=== PATIENT | male | born 1965 | race Caucasian/White ===

== ENCOUNTER 2020-06-12 10:10 | Outpatient (REF) | payer OTHER, SELFPAY | END 2020-06-12 10:11 | disposition home or self-care (01) | LOC: HO.LAB 10:10 | PROVIDERS: Visit Provider Internal Medicine | DX: Z20.822 Contact with and (suspected) exposure to COVID-19 (principal) | CPT/HCPCS: 36415; C9803; U0003 ==

== ENCOUNTER 2020-06-21 17:35 | Emergency (ER) | payer OTHER, SELFPAY ==
[2020-06-21 17:41] VITALS: BP 114/75; PULSE 108; RESP 18; TEMP 36.9; O2SAT 96; BMI 33.3
--- NOTE | 2020-06-21 19:08 | XR_ITS ---
EXAMINATION: XR CHEST CLINICAL INFORMATION: Dyspnea COMPARISON: None TECHNIQUE: Frontal view of the chest was obtained. FINDINGS: No significant abnormality is noted involving the heart, lungs, mediastinum, bony thorax or soft tissues. XR/XR chest 1V IMPRESSION: Unremarkable examination.
--- NOTE | 2020-06-21 19:08 | ECG_ITS ---
Test Reason : SOB Blood Pressure : / mmHG Vent. Rate : 077 BPM Atrial Rate : 077 BPM P-R Int : 150 ms QRS Dur : 100 ms QT Int : 382 ms P-R-T Axes : 045 013 072 degrees QTc Int : 432 ms Normal sinus rhythm Normal ECG No previous ECGs available Referred By: Generic ED Physician Electronically Signed By:Elpidio Mancilla
[2020-06-21 19:53] LABS: MANUAL DIFF FLAG NO
[2020-06-21 19:58] LABS: Basophils Percent Auto 0.3 % (0-2); Eosinophils Absolute Auto 0.1 X10*3/uL (0.0-0.4); Eosinophils Percent Auto 1.6 % (0-4); Hematocrit 44.4 % (42-52); Hemoglobin 15.2 g/dl (14.0-18.0); Imm Gran Abs Auto 0.01 X10*3/uL (0.00-0.03); Imm Gran Pct Auto 0.1 % (0.0-0.4); Lymphocytes Absolute Auto 1.7 X10*3/uL (1.2-4.9); Lymphocytes Percent Auto 24.4 % (20-40); Mean Corpuscular HGB Conc 34.2 g/dl (31.0-36.0); Mean Corpuscular Hemoglobin 32.5 pg (27.0-33.0); Mean Corpuscular Volume 94.9 fL (80-98); Monocytes Absolute Auto 0.8 X10*3/uL (0.1-1.2); Monocytes Percent Auto 10.8 % (2-11); Neutrophils Absolute Auto 4.4 X10*3/uL (2.0-8.3); Neutrophils Percent Auto 62.8 % (45-73); Platelet Count 187 X10*3/uL (160-400); Red Blood Count 4.68 X10*6/uL (4.60-5.80); Red Cell Distribution Width 12.3 % (11.0-16.0)
[2020-06-21 20:17] LABS: Prothrombin Time 12.3 SEC (10.8-13.0)
[2020-06-21 20:19] LABS: Anion Gap 14 (12-20); Blood Urea Nitrogen 9 mg/dL (9-16); Calcium 8.6 mg/dL (8.4-10.2); Carbon Dioxide 29 mmol/L (22-29); Chloride 103 mmol/L (96-108); Creatinine Clr Calc Pharmacy 132.4; Estimated Glomerular Filt Rate > 60; Glucose Random 95 mg/dL (60-115); Potassium 4.9 mmol/L (3.3-5.1); Sodium 141 mmol/L (135-145)
[2020-06-21 20:20] LABS: Partial Thromboplastin Time 35.7 SEC (24.1-38.0)
[2020-06-21 20:26] LABS: B Type Natriuretic Peptide < 10 pg/mL (<100)
[2020-06-21 22:06] VITALS: BP 136/86; PULSE 82; RESP 16; TEMP 37.4; O2SAT 96
--- NOTE | 2020-06-21 22:38 | ED_ITS ---
HPI - URI/Sore Throat General Chief Complaint: Dyspnea Stated Complaint: Covid + Time Seen by Provider: 06/21/20 22:10 Source: patient Mode of arrival: ambulatory Limitations: no limitations History of Present Illness HPI Narrative: 55-year-old male known COVID positive presents with 12 days of upper respiratory symptoms, states that the symptoms are getting worse and now he is coughing up a thick sputum. He does not report palpitations, abdominal pain, abdominal distention, nausea, vomiting, or edema. MD elicited complaint: fever, cough and nasal congestion Pertinent past history: other (COVID-19 positive) Onset (ago): day(s) (12) Consistency: constant Description of mucous: watery and yellow Able to tolerate fluids by mouth: Yes Exacerbating factors: exertion and deep breaths Relieving factors: nothing Context: sick contacts Associated symptoms: fever, chills, myalgias, headache, rhinorrhea and cough Treatments prior to arrival: acetaminophen and ibuprofen Related Data Previous Rx's Medication Instructions Recorded azithromycin [Zithromax Z-Leroy] See Rx Instructions .ROUTE 06/21/20 .COMPLEX #6 tab benzonatate [Tessalon Perles] 100 mg PO TID PRN #30 cap 06/21/20 cephalexin [Keflex] 500 mg PO QID 7 Days #28 cap 06/21/20 dexamethasone 6 mg PO DAILY 10 Days #10 tab 06/21/20 Allergies Allergy/AdvReac Type Severity Reaction Status Date / Time Penicillins [PENICILLINS] Allergy Unknown UNKNOWN Unverified 02/08/20 16:57 sulfamethoxazole Allergy Unknown UNKNOWN Unverified 02/08/20 16:57 [From BACTRIM] trimethoprim [From BACTRIM] Allergy Unknown UNKNOWN Unverified 02/08/20 16:57 vancomycin [VANCOMYCIN] Allergy Unknown UNKNOWN Verified 06/21/20 17:41 ALMOST EVERYTHING Allergy Unknown ASK PT Uncoded 02/08/20 16:57 Review of Systems Review of Systems: Constitutional: positive Fever, positive Chills, positive fatigue, positive Malaise ENT/Mouth: positive sore throat, positive runny nose Eyes: No Discharge Cardiovascular: No Chest Pain, No SOB Respiratory: Positive Cough, positive Sputum, No Wheezing, No Smoke Exposure, No Dyspnea Gastrointestinal: No Nausea, No Vomiting, No Diarrhea Genitourinary: no irregular bleeding, No Dysuria, No Urinary Frequency, No Hematuria, No Urinary Incontinence, No Urgency, No Flank Pain, Musculoskeletal: positive Myalgia Skin: No rash Neuro: No Headache Yes all other systems are reviewed and are negative [facility] Past Medical History Attestation statement: The following information was validated with the patient. Source: old records reviewed Social History Social History Advance Directives: No Advance Directives Information Provided: No Physical Exam Vital Signs: Vital Signs: Last Vital Signs Temp 99.4 F 06/21/20 22:06 Pulse 82 06/21/20 22:06 Resp 16 06/21/20 22:06 BP 136/86 06/21/20 22:06 Pulse Ox 98 06/21/20 22:53 Body Mass Index 33.3 Appearance: Alert. Oriented X3. Mild distress. Eyes: Pupils equal, round and reactive to light. ENT: Pharynx normal. Neck: Normal inspection. Neck supple. CVS: Normal heart rate and rhythm. Pulses normal. Respiratory: No respiratory distress. Lung sounds wheezing Abdomen: Soft and nontender. Skin: Skin warm and dry. Normal skin color. Normal skin turgor. Extremities: No lower extremity edema. Neuro: No motor deficit. No sensory deficit. Course Course Course Narrative: 55-year-old male with known COVID positive presents with worsening symptoms. Chest x-ray does not show any acute findings, labs are unremarkable, ambulatory pulse ox at 97% on room air. At this time we will treat with antibiotics, steroids, and albuterol as an outpatient. Patient understands that he does not meet admission criteria even though he feels terrible, patient does understand this shortness of breath, chest pain, or any o ther concerning symptoms are to arise that he is always more than welcome return to the emergency department for further evaluation. Patient verbalized understanding of and agrees to plan of care to discharge home. MDM - URI/Sore Throat MDM Narrative Medical decision making narrative: Positive COVID-19 Differential Diagnosis Differential diagnosis: Likely upper respiratory infection and viral infection Medical Records Attestation: I reviewed the patient's medical records. Lab Data Attestation: I reviewed the patient's lab results. Result diagrams: 06/21/20 19:48 06/21/20 19:48 Labs: Lab Results 06/21/20 06/21/20 06/21/20 Range/Units 19:48 19:48 19:48 WBC 7.0 (4.8-10.8) X10*3/uL RBC 4.68 (4.60-5.80) X10*6/uL Hgb 15.2 (14.0-18.0) g/dl Hct 44.4 (42-52) % MCV 94.9 (80-98) fL MCH 32.5 (27.0-33.0) pg MCHC 34.2 (31.0-36.0) g/dl RDW 12.3 (11.0-16.0) % Plt Count 187 (160-400) X10*3/uL MPV 9.0 L (9.4-12.4) fL Immature Gran % (Auto) 0.1 (0.0-0.4) % Neut % (Auto) 62.8 (45-73) % Lymph % (Auto) 24.4 (20-40) % Sargent % (Auto) 10.8 (2-11) % Eos % (Auto) 1.6 (0-4) % Baso % (Auto) 0.3 (0-2) % Lymph # (Auto) 1.7 (1.2-4.9) X10*3/uL Sargent # (Auto) 0.8 (0.1-1.2) X10*3/uL Eos # (Auto) 0.1 (0.0-0.4) X10*3/uL Baso # (Auto) 0.0 (0.0-0.2) X10*3/uL Abs Immat Gran (auto) 0.01 (0.00-0.03) X10*3/uL Absolute Neuts (auto) 4.4 (2.0-8.3) X10*3/uL Absolute Nucleated RBC 0.000 (0.0-0.012) X10*3/uL Nucleated RBC % (auto) 0.0 (0.0-0.2) /100WBC PT 12.3 (10.8-13.0) SEC INR 1.0 (0.9-1.1) APTT 35.7 (24.1-38.0) SEC Sodium 141 (135-145) mmol/L Potassium 4.9 (3.3-5.1) mmol/L Chloride 103 (96-108) mmol/L Carbon Dioxide 29 (22-29) mmol/L Anion Gap 14 (12-20) BUN 9 (9-16) mg/dL Creatinine 0.84 (0.5-1.4) mg/dL Estim Creat Clear Calc 132.4 Estimated GFR > 60 Random Glucose 95 (60-115) mg/dL Calcium 8.6 (8.4-10.2) mg/dL Troponin I High Sens (<3.5-35.0) ng/L B-Natriuretic Peptide (<100) pg/mL 06/21/20 Range/Units 19:48 WBC (4.8-10.8) X10*3/uL RBC (4.60-5.80) X10*6/uL Hgb (14.0-18.0) g/dl Hct (42-52) % MCV (80-98) fL MCH (27.0-33.0) pg MCHC (31.0-36.0) g/dl RDW (11.0-16.0) % Plt Count (160-400) X10*3/uL MPV (9.4-12.4) fL Immature Gran % (Auto) (0.0-0.4) % Neut % (Auto) (45-73) % Lymph % (Auto) (20-40) % Sargent % (Auto) (2-11) % Eos % (Auto) (0-4) % Baso % (Auto) (0-2) % Lymph # (Auto) (1.2-4.9) X10*3/uL Sargent # (Auto) (0.1-1.2) X10*3/uL Eos # (Auto) (0.0-0.4) X10*3/uL Baso # (Auto) (0.0-0.2) X10*3/uL Abs Immat Gran (auto) (0.00-0.03) X10*3/uL Absolute Neuts (auto) (2.0-8.3) X10*3/uL Absolute Nucleated RBC (0.0-0.012) X10*3/uL Nucleated RBC % (auto) (0.0-0.2) /100WBC PT (10.8-13.0) SEC INR (0.9-1.1) APTT (24.1-38.0) SEC Sodium (135-145) mmol/L Potassium (3.3-5.1) mmol/L Chloride (96-108) mmol/L Carbon Dioxide (22-29) mmol/L Anion Gap (12-20) BUN (9-16) mg/dL Creatinine (0.5-1.4) mg/dL Estim Creat Clear Calc Estimated GFR Random Glucose (60-115) mg/dL Calcium (8.4-10.2) mg/dL Troponin I High Sens 4.0 (<3.5-35.0) ng/L B-Natriuretic Peptide < 10 (<100) pg/mL Imaging Data Chest x-ray: Attestation: I personally reviewed and interpreted this imaging study as follows: Radiologist's impression: EXAMINATION: XR CHEST CLINICAL INFORMATION: Dyspnea COMPARISON: None TECHNIQUE: Frontal view of the chest was obtained. FINDINGS: No significant abnormality is noted involving the heart, lungs, mediastinum, bony thorax or soft tissues. XR/XR chest 1V IMPRESSION: Unremarkable examination. ECG Data Attestation: I personally reviewed and interpreted this ECG as follows: ECG interpretation date: 06/21/20 ECG interpretation time: 20:52 Interpretation: Vent. rate 77 BPM LA interval 150 ms QRS duration 100 ms QT/QTc 382/432 ms P-R-T axes 45 13 72, Normal sinus rhythm Normal ECG No previous ECGs available Discharge Plan Discharge Clinical Impression: COVID-19 Patient Disposition: Home, Self-Care Instructions: COVID-19 (Coronavirus Disease 2019) (ED) Additional Instructions: You were evaluated for worsening symptoms of COVID-19. Please take azithromycin and Keflex as directed. These are antibiotics. These antibiotics are to prevent viral COVID pneumonia from progressing to a bacterial pneumonia. Please use dexamethasone 6 mg by mouth daily. Use Tessalon Perles as needed c ough. Use albuterol as needed for shortness of breath. Please drink plenty of fluids. Maintain social isolation guidelines per State and Federal regulations. Thank you for choosing this emergency department for evaluation. Please follow-up with primary care physician as needed. Return to the emergency department for any new, concerning, or worsening symptoms. Prescriptions: New azithromycin [Zithromax Z-Leroy] 250 mg tablet See Rx Instructions .ROUTE .COMPLEX Qty: 6 RF: 0 cephalexin [Keflex] 500 mg capsule 500 mg PO QID 7 Days Qty: 28 RF: 0 dexamethasone 6 mg tablet 6 mg PO DAILY 10 Days Qty: 10 RF: 0 benzonatate [Tessalon Perles] 100 mg capsule 100 mg PO TID PRN (Reason: cough) Qty: 30 RF: 0 Interventions: ED Discharge Assessment Last Done: 06/21/20 23:11 Discharge Date/Time: 06/21/20 23:13
[2020-06-21 22:53] VITALS: O2SAT 98
[2020-06-21] MEDS: Albuterol Sulfate 90 MCG 8 GM INHALER 2 PUFF INHALE (23:00)
[2020-06-21] MEDS: dexAMETHasone 6 MG TABLET PO (23:00)
[2020-06-21] MEDS: Azithromycin 500 MG TABLET PO (23:00)
[2020-06-21] MEDS: cephALEXin 500 MG CAPSULE PO (23:00)
== END 2020-06-21 23:13 | disposition home or self-care (01) ==
PROVIDERS: Emergency Provider Internal Medicine; PCP Internal Medicine
DX: U07.1 COVID-19 (principal); R06.02 Shortness of breath; Z79.899 Other long term (current) drug therapy
CPT/HCPCS: 36415; 71045; 80048; 83880; 84484; 85025; 85610; 85730; 93005; 99283; 99284; J8540

== ENCOUNTER 2022-03-08 13:20 | Emergency (ER) | payer OTHER, SELFPAY ==
--- NOTE | ~2022-03-08 | XR_ITS ---
EXAMINATION: XR hand wrist RT CLINICAL INFORMATION: Reason for Exam wrist pain COMPARISON: Hand radiographs 01/29/2018. TECHNIQUE: AP, lateral, and oblique views of the hand/wrist XR/XR hand wrist RT FINDINGS/IMPRESSION: * Acute intra-articular minimally displaced fracture of the distal radial metaphysis. * Widening of the scapholunate interval which could be seen in the setting of scapholunate dissociation. * Chronic posttraumatic fracture deformity of the fifth metacarpal.
--- NOTE | ~2022-03-08 | CT_ITS ---
EXAMINATION CT CHEST, ABDOMEN AND PELVIS WITH CONTRAST CLINICAL INFORMATION: Trauma. Fall. COMPARISON: None. TECHNIQUE: Multidetector volumetric CT imaging of the chest, abdomen and pelvis was obtained after the administration of 85 mL of intravenous Omnipaque 350 without immediate adverse reactions. Coronal and sagittal reformats were reviewed. This CT examination was performed using dose optimization techniques as appropriate, variously including the following: *Automated exposure control *Adjustment of mA and/or kV according to patient size (this includes techniques or standardized protocols for targeted exams where dose is matched to indication/reason for exam; i.e. extremities or head) *Use of iterative reconstruction technique DLP: 1720 mGy-cm. FINDINGS: CHEST LUNGS/PLEURA: The lungs are clear with no evidence of inflammation or nodules. Mild diffuse bronchial wall thickening without bronchiectasis. There is no pleural effusion. No pleural mass or thickening. MEDIASTINUM/JAYELN: Normal heart size. No pericardial effusion. Great vessels normal caliber. CHEST WALL/AXILLA: Unremarkable. ABDOMEN/PELVIS HEPATOBILIARY: Liver normal in size, contour and morphology. There are a couple benign cysts. No suspicious lesions. No intra or extrahepatic biliary dilation. Gallbladder unremarkable. PANCREAS: Unremarkable. SPLEEN: Unremarkable. ADRENAL GLANDS: Unremarkable. KIDNEYS, URETERS AND BLADDER: Kidneys normal in size, axis and morphology demonstrating symmetric enhancement. No hydronephrosis or urinary calculi. Ureters normal in course and caliber. Bladder grossly unremarkable.. GASTROINTESTINAL TRACT: Sigmoid colonic diverticulosis. No evidence of diverticulitis. Normal appendix. Small sliding-type hiatal hernia. Esophagus is patulous. Small bowel unremarkable. PELVIC VISCERA: Unremarkable. LYMPH NODES: No lymphadenopathy. PERITONEUM/BODY WALL: Unremarkable. VASCULAR STRUCTURES: Aorta is atherosclerotic but normal caliber. Patent venous structures. OSSEOUS STRUCTURES No acute or suspicious osseous abnormalities. CT/CT chest w IV con IMPRESSION: * No evidence of acute traumatic injury within the chest, abdomen or pelvis. * No fractures. * Chronic findings as above.
--- NOTE | ~2022-03-08 | CT_ITS ---
EXAMINATION CT CHEST, ABDOMEN AND PELVIS WITH CONTRAST CLINICAL INFORMATION: Trauma. Fall. COMPARISON: None. TECHNIQUE: Multidetector volumetric CT imaging of the chest, abdomen and pelvis was obtained after the administration of 85 mL of intravenous Omnipaque 350 without immediate adverse reactions. Coronal and sagittal reformats were reviewed. This CT examination was performed using dose optimization techniques as appropriate, variously including the following: *Automated exposure control *Adjustment of mA and/or kV according to patient size (this includes techniques or standardized protocols for targeted exams where dose is matched to indication/reason for exam; i.e. extremities or head) *Use of iterative reconstruction technique DLP: 1720 mGy-cm. FINDINGS: CHEST LUNGS/PLEURA: The lungs are clear with no evidence of inflammation or nodules. Mild diffuse bronchial wall thickening without bronchiectasis. There is no pleural effusion. No pleural mass or thickening. MEDIASTINUM/JAYLEN: Normal heart size. No pericardial effusion. Great vessels normal caliber. CHEST WALL/AXILLA: Unremarkable. ABDOMEN/PELVIS HEPATOBILIARY: Liver normal in size, contour and morphology. There are a couple benign cysts. No suspicious lesions. No intra or extrahepatic biliary dilation. Gallbladder unremarkable. PANCREAS: Unremarkable. SPLEEN: Unremarkable. ADRENAL GLANDS: Unremarkable. KIDNEYS, URETERS AND BLADDER: Kidneys normal in size, axis and morphology demonstrating symmetric enhancement. No hydronephrosis or urinary calculi. Ureters normal in course and caliber. Bladder grossly unremarkable.. GASTROINTESTINAL TRACT: Sigmoid colonic diverticulosis. No evidence of diverticulitis. Normal appendix. Small sliding-type hiatal hernia. Esophagus is patulous. Small bowel unremarkable. PELVIC VISCERA: Unremarkable. LYMPH NODES: No lymphadenopathy. PERITONEUM/BODY WALL: Unremarkable. VASCULAR STRUCTURES: Aorta is atherosclerotic but normal caliber. Patent venous structures. OSSEOUS STRUCTURES No acute or suspicious osseous abnormalities. CT/CT abdomen pelvis w IV con IMPRESSION: * No evidence of acute traumatic injury within the chest, abdomen or pelvis. * No fractures. * Chronic findings as above.
--- NOTE | ~2022-03-08 | XR_ITS ---
EXAMINATION: CR RIBS, RIGHT CLINICAL INFORMATION: Fall. Injury. COMPARISON: Chest x-ray dated 06/21/2020. TECHNIQUE: Frontal view of the chest and 3 views of the right ribs were obtained. FINDINGS: Minimal linear bibasilar atelectasis.. No consolidation, pneumothorax, or pleural effusion. The cardiomediastinal silhouette and pulmonary vasculature are normal. In the region of patient's pain identified by a metallic BB, very subtle rib deformities are suggested without definite fracture lucency appreciated, suspicious for incomplete nondisplaced fractures involving the anterolateral right eighth, ninth, 10th, and 11th ribs. XR/XR ribs RT min 3V w CXR1V IMPRESSION: Subtle irregularities of the anterolateral right 8th-11th ribs are seen in region of patient's tenderness, raising the suspicion of subtle nondisplaced rib fractures. Close clinical correlation requested.
[2022-03-08 13:22] VITALS: BP 135/90; PULSE 106; RESP 18; O2SAT 98; BMI 34.7
[2022-03-08] MEDS: Ibuprofen 600 MG TABLET PO (13:28)
[2022-03-08] MEDS: Acetaminophen 325 MG TABLET 975 MG PO (13:29)
--- NOTE | 2022-03-08 14:55 | ED.EXTPRO ---
HPI - Extremity Problem General Chief complaint: Extremity Injury, Upper Stated complaint: fall 03/08/22 Time Seen by Provider: 03/08/22 14:29 Source: patient Limitations: no limitations History of Present Illness HPI Narrative: 56-year-old male who is healthy who is right-hand dominant presents with right wrist pain and right rib pain after a fall which occurred just prior to arrival. Patient tells me he was walking his dog when his dog started to run and he tripped falling tucking his arm into his chest wall striking both on the ground. No head strike or loss of consciousness. No anticoagulation use. Related Data Previous Rx's Medication Instructions Recorded azithromycin 250 mg tablet See Rx Instructions PO .COMPLEX #6 06/21/20 (Zithromax Z-Leroy) tabs benzonatate 100 mg capsule 100 mg PO TID PRN cough #30 caps 06/21/20 (Tessalon Perles) cephalexin 500 mg capsule (Keflex) 500 mg PO QID 7 days #28 caps 06/21/20 dexamethasone 6 mg tablet 6 mg PO DAILY 10 days #10 tabs 06/21/20 oxycodone 5 mg tablet 5 mg PO Q8H PRN pain #10 tabs 03/08/22 Allergies Allergy/AdvReac Type Severity Reaction Status Date / Time Penicillins [PENICILLINS] Allergy Unknown UNKNOWN Unverified 02/08/20 16:57 sulfamethoxazole Allergy Unknown UNKNOWN Unverified 02/08/20 16:57 [From BACTRIM] trimethoprim [From BACTRIM] Allergy Unknown UNKNOWN Unverified 02/08/20 16:57 vancomycin [VANCOMYCIN] Allergy Unknown UNKNOWN Verified 06/21/20 17:41 ALMOST EVERYTHING Allergy Unknown ASK PT Uncoded 02/08/20 16:57 Review of Systems Review of Systems: Yes all other systems are reviewed and are negative Constitutional: Constitutional: Reports no additional constitutional complaints, Denies body ache(s), Denies chills, Denies fever(s), Denies headache(s) and Denies weakness Eyes: Eyes: Reports no additional eye complaints and Denies change in vision ENT: Reports system reviewed and no additional complaints, except as documented, Denies dizziness, Denies headache(s), Denies nasal congestion, Denies nasal discharge and Denies neck pain Cardiovascular: Cardiovascular: Reports no additional cardiovascular complaints, Reports chest pain, Denies leg edema and Denies dyspnea Respiratory: Respiratory: Reports no additional respiratory complaints, Denies cough and Denies dyspnea Gastrointestinal: Gastrointestinal: Reports no additional gastrointestinal complaints, Denies abdominal pain, Denies diarrhea, Denies nausea and Denies vomiting Genitourinary: Genitourinary: Denies urinary incontinence Musculoskeletal: Musculoskeletal: Reports no additional musculoskeletal complaints, Denies back pain, Reports arthralgias, Reports joint swelling, Reports limited range of motion, Denies neck pain, Denies numbness and Denies tingling Integumentary/Breasts: Skin/Breast: Reports system reviewed and no additional complaints, except as docu and Denies rash Neurologic: Reports system reviewed and no additional complaints, except as documented, Denies Abnormal speech present, Denies dizziness, Denies headache(s), Denies numbness, Denies tingling and Denies weakness PMFSH Past Medical History Attestation statement: The following information was validated with the patient. Source: old records reviewed and nursing notes reviewed Social History Social History Advance Directives: No Advance Directives Information Provided: No Physical Exam Vital Signs: Vital Signs: Last Vital Signs Pulse 106 H 03/08/22 13:22 Resp 18 03/08/22 13:22 BP 135/90 H 03/08/22 13:22 Pulse Ox 98 03/08/22 13:22 O2 Del Method 03/08/22 13:22 BMI result Body Mass Index 34.7 Const: General: cooperative, healthy appearing, comfortable and no acute distress Orientation/consciousness: patient oriented x3 Limitations: no limitations HEENT: Head: Yes normal to inspection Ears: hearing grossly normal bilaterally General nose exam: Normal external nose present Face and sinus: Yes normal facial exam Mouth: Normal oral and palatal mucosa present Throat: Yes posterior oropharynx normal Eyes: General: appearance normal, both eyes and all related structures Pupils: Equal, round and reactive pupils present Neck: Neck: Yes normal visual inspection Chest: Chest palpation & inspection: normal inspection of the chest and tenderness (to right anterior chest wall-no crepitus or echymosis ) Resp: Effort & Inspection: normal respiratory effort Auscultation: clear to auscultation bilaterally Cardio: Rate: regular rate Rhythm: regular rhythm Peripheral pulses: Peripheral pulses 2+ throughout GI: Inspection: Yes normal to inspection Palpation (GI): Soft to palpation and nontender Auscultation: normal bowel sounds Back/Spine/Pelvis: Thoracic/Lumbar Spine: thoracic and lumbar spine normal to inspection Skin: General skin exam: no rashes or lesions noted Neuro: General: patient oriented x3, no focal motor deficits and normal sensation to monofilament Cranial nerves: Yes Equal, round and reactive pupils present Cognition (Neuro): normal cognition Speech: No Abnormal speech present Gait exam (Neuro): Normal gait present Motor exam (neuro): 5/5 motor strength present throughout Extrem: Other: Tenderness to distal right radius over the dorsal aspect which is worsened with flexion and extension of the wrist. There is also tenderness to the snuffbox. Neurovascular intact distally. Normal radial and ulnar pulses General: Yes normal to inspection Course Course Course Narrative: X-ray shows *? Acute intra-articular minimally displaced fracture of the distal radial metaphysis. ? *? Widening of the scapholunate interval which could be seen in the setting of scapholunate dissociation. ? *? 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 Spoke to [facility]. Recommended thumb spica splint and follow-up in the office Reevaluation(s) Reevaluation #1: 1630 X-rays of right ribs show IMPRESSION: Subtle irregularities of the anterolateral right 8th-11th ribs are seen in region of patient's tenderness, raising the suspicion of subtle nondisplaced rib fractures. Close clinical correlation requested. -on exam patient has mild tenderness. He has no ecchymosis or crepitus. No deformity. His lungs are clear throughout. His vital signs are stable. He has no hypoxia or tachypnea. I did discuss the case with my attending physician Dr. Kent. Due to the number of rib fractures we would consider transferring the patient to a trauma center. I did discuss this with the patient. We discussed standard of care would be transfer to a trauma center for further evaluation. Patient is not interested in transfer. He is willing to have a CT scan of the chest and abdomen and pelvis to rule out any pulmonary contusion, liver laceration. Therefore a CT scan was ordered. Labs were also ordered. Patient vehemently denies hitting his head or loss of consciousness. Therefore a CT scan of his head was not performed. Reevaluation #2: 1830-CT chest, abdomen pelvis show no acute finding. There are no rib fractures visualized on imaging. This was reviewed with the patient. He was discharged home with recommendations to follow-up with orthopedics for his right wrist injury. Reviewed worrisome signs and symptoms of when to return to the emergency room. Comfortable plan for discharge home. MDM - Extremity (Nontraumatic) MDM Narrative Medical decision making narrative: This is a 56-year-old male who is right-hand dominant who presents after mechanical fall with right wrist pain and right rib pain. Will check x-rays, provide analgesia Medical Records Attestation: I reviewed the patient's medical records. Lab Data Attestation: I reviewed the patient's lab results. Result diagrams: 03/08/22 16:23 03/08/22 16: Labs: Lab Results 03/08/22 03/08/22 Range/Units 16:23 16:23 WBC 8.1 (4.8-10.8) X10*3/uL RBC 4.54 L (4.60-5.80) X10*6/uL Hgb 14.7 (14.0-18.0) g/dl Hct 43.0 (42.0-52.0) % MCV 94.7 (80.0-98.0) fL MCH 32.4 (27.0-33.0) pg MCHC 34.2 (31.0-36.0) g/dl RDW 12.7 (11.0-16.0) % Plt Count 213 (160-400) X10*3/uL MPV 9.0 L (9.4-12.4) fL Immature Gran % (Auto) 0.2 (0.0-0.4) % Neut % (Auto) 69.7 (45-73) % Lymph % (Auto) 21.3 (20-40) % [place] % (Auto) 6.3 (2-11) % Eos % (Auto) 2.1 (0-4) % Baso % (Auto) 0.4 (0-2) % Lymph # (Auto) 1.7 (1.2-4.9) X10*3/uL [place] # (Auto) 0.5 (0.1-1.2) X10*3/uL Eos # (Auto) 0.2 (0.0-0.4) X10*3/uL Baso # (Auto) 0.0 (0.0-0.2) X10*3/uL Abs Immat Gran (auto) 0.02 (0.00-0.03) X10*3/uL Absolute Neuts (auto) 5.7 (2.0-8.3) x10*3/uL Absolute Nucleated RBC 0.000 (0.0-0.012) X10*3/uL Nucleated RBC % (auto) 0.0 (0.0-0.2) /100WBC Sodium 139 (135-145) mmol/L Potassium 4.4 (3.3-5.1) mmol/L Chloride 101 (96-108) mmol/L Carbon Dioxide 26 (22-29) mmol/L Anion Gap 16 (12-20) BUN 13 (9-16) mg/dL Creatinine 0.99 (0.5-1.4) mg/dL Estim Creat Clear Calc 113.0 Estimated GFR > 60 Random Glucose 180 H D (60-115) mg/dL Calcium 9.2 D (8.4-10.2) mg/dL Total Bilirubin 0.7 (0.0-1.0) mg/dL Direct Bilirubin 0.3 (0.0-0.5) mg/dL AST 24 (5-37) U/L ALT 23 (0-40) U/L Alkaline Phosphatase 66 (39-117) U/L Total Protein 6.9 (6.5-8.0) g/dL Albumin 4.4 (3.5-5.0) g/dL Imaging Data hand/wrist x-ray: Attestation: I personally reviewed and interpreted this imaging study as follows: Radiologist's impression: Launch?Image [place] [address] XRay Report Signed Patient: Javi Rivera MR#: [id number] : 1965 Acct:[id number] Age/Sex: 56 / M ADM Date: 03/08/22 Loc: .ED Attending Dr: Ordering Physician: Generic ED Physician Date of Service: 03/08/22 Procedure(s): XR hand wrist RT Accession Number(s): [id number] cc: Generic ED Physician~ EXAMINATION: ?XR hand wrist RT CLINICAL INFORMATION: Reason for Exam wrist pain COMPARISON: Hand radiographs 01/29/2018. TECHNIQUE: AP, lateral, and oblique views of the hand/wrist XR/XR hand wrist RT FINDINGS/IMPRESSION: ? *? Acute intra-articular minimally displaced fracture of the distal radial metaphysis. ? *? Widening of the scapholunate interval which could be seen in the setting of scapholunate dissociation. ? *? 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 ? ? ribs x-ray: Attestation: I personally reviewed and interpreted this imaging study as follows: Radiologist's impression: [address] [address] XRay Report Signed Patient: Javi Rivera MR#: [id number] : 1965 Acct:[id number] Age/Sex: 56 / M ADM Date: 03/08/22 Loc: HO.ED Attending Dr: Ordering Physician: Crystal Rose NP Date of Service: 03/08/22 Procedure(s): XR ribs RT min 3V w CXR1V Accession Number(s): [id number] cc: Crystal Rose NP~ EXAMINATION: CR RIBS, RIGHT CLINICAL INFORMATION: Fall. Injury. COMPARISON: Chest x-ray dated 06/21/2020. TECHNIQUE: Frontal view of the chest and 3 views of the right ribs were obtained. FINDINGS: Minimal linear bibasilar atelectasis.. No consolidation, pneumothorax, or pleural effusion. The cardiomediastinal silhouette and pulmonary vasculature are normal. In the region of patient's pain identified by a metallic BB, very subtle rib deformities are suggested without definite fracture lucency appreciated, suspicious for incomplete nondisplaced fractures involving the anterolateral right eighth, ninth, 10th, and 11th ribs. XR/XR ribs RT min 3V w CXR1V IMPRESSION: Subtle irregularities of the anterolateral right 8th-11th ribs are seen in region of patient's tenderness, raising the suspicion of subtle nondisplaced rib fractures. Close clinical correlation requested. ? Ct chest/abdomen/pelvis: Attestation: I personally reviewed and interpreted this imaging study as follows: Radiologist's impression: EXAMINATION CT CHEST, ABDOMEN AND PELVIS WITH CONTRAST CLINICAL INFORMATION: Trauma. Fall.? COMPARISON: None. ? TECHNIQUE: Multidetector volumetric CT imaging of the chest, abdomen and pelvis was obtained after the administration of 85 mL of intravenous Omnipaque 350 without immediate adverse reactions.? Coronal and sagittal reformats were reviewed. This CT examination was performed using dose optimization techniques as appropriate, variously including the following: *Automated exposure control *Adjustment of mA and/or kV according to patient size (this includes techniques or standardized protocols for targeted exams where dose is matched to indication/reason for exam; i.e. extremities or head) *Use of iterative reconstruction technique DLP: 1720 mGy-cm. FINDINGS: CHEST LUNGS/PLEURA: The lungs are clear with no evidence of inflammation or nodules. Mild diffuse bronchial wall thickening without bronchiectasis. There is no pleural effusion. No pleural mass or thickening.? MEDIASTINUM/JAYLEN: Normal heart size. No pericardial effusion. Great vessels normal caliber.? CHEST WALL/AXILLA: Unremarkable.? ABDOMEN/PELVIS HEPATOBILIARY: Liver normal in size, contour and morphology. There are a couple benign cysts. No suspicious lesions. No intra or extrahepatic biliary dilation. Gallbladder unremarkable. PANCREAS: Unremarkable. SPLEEN: Unremarkable. ADRENAL GLANDS: Unremarkable. KIDNEYS, URETERS AND BLADDER: Kidneys normal in size, axis and morphology demonstrating symmetric enhancement. No hydronephrosis or urinary calculi. Ureters normal in course and caliber. Bladder grossly unremarkable.. GASTROINTESTINAL TRACT: Sigmoid colonic diverticulosis. No evidence of diverticulitis. Normal appendix. Small sliding-type hiatal hernia. Esophagus is patulous. Small bowel unremarkable.? PELVIC VISCERA: Unremarkable. LYMPH NODES: No lymphadenopathy. PERITONEUM/BODY WALL: Unremarkable. VASCULAR STRUCTURES: Aorta is atherosclerotic but normal caliber. Patent venous structures. OSSEOUS STRUCTURES? No acute or suspicious osseous abnormalities. ? CT/CT chest w IV con IMPRESSION: *? No evidence of acute traumatic injury within the chest, abdomen or pelvis. *? No fractures. *? Chronic findings as above. Procedures Orthopedic Splinting/Casting Injury #1: Side: right Upper Extremity Injury Location: wrist Upper Extremity Immobilizer: thumb spica Additional Comments: Performed by [facility] Discharge Plan Discharge Clinical Impression: Distal radius fracture, right, Scapholunate dissociation of right wrist, Chest wall contusion Patient Disposition: Home, Self-Care Instructions: Wrist Fracture in Adults (ED), Rib Fracture (ED), Splint Care (ED) Additional Instructions: Do not use the right hand Elevate the hand Call Orthopedics Wednesday to establish an appointment next week with the Return for cold, pale hand, numbness or tingling in the hand, increasing pain Leave the splint on all times. Do not get wet. Your x-ray was concerning for rib fractures on the right side. We did perform a CT scan of your chest which shows no rib fractures Prescriptions: New oxycodone 5 mg tablet 5 mg PO Q8H PRN (Reason: pain) Qty: 10 0RF Rx Instructions: Partial Fill upon patient request. No Action azithromycin [Zithromax Z-Leroy] 250 mg tablet See Rx Instructions .ROUTE .COMPLEX Qty: 6 0RF Rx Instructions: take 500 mg today (day 1), then 250 mg for 4 days (days 2-5) cephalexin [Keflex] 500 mg capsule 500 mg PO QID 7 Days Qty: 28 0RF dexamethasone 6 mg tablet 6 mg PO DAILY 10 Days Qty: 10 0RF benzonatate [Tessalon Perles] 100 mg capsule 100 mg PO TID PRN (Reason: cough) Qty: 30 0RF [place]: [facility] [place] [facility] [place]Provider Group] - 5 days Interventions: ED Discharge Assessment Last Done: 03/08/22 18:25 Discharge Date/Time: 03/08/22 18:27
[2022-03-08] MEDS: oxyCODONE HCl Immed Release 5 MG TABLET PO (15:06)
[2022-03-08 16:27] LABS: MANUAL DIFF FLAG NO
[2022-03-08 16:29] LABS: Basophils Percent Auto 0.4 % (0-2); Eosinophils Absolute Auto 0.2 X10*3/uL (0.0-0.4); Eosinophils Percent Auto 2.1 % (0-4); Hemoglobin 14.7 g/dl (14.0-18.0); Imm Gran Abs Auto 0.02 X10*3/uL (0.00-0.03); Imm Gran Pct Auto 0.2 % (0.0-0.4); Lymphocytes Absolute Auto 1.7 X10*3/uL (1.2-4.9); Lymphocytes Percent Auto 21.3 % (20-40); Mean Corpuscular HGB Conc 34.2 g/dl (31.0-36.0); Mean Corpuscular Hemoglobin 32.4 pg (27.0-33.0); Mean Corpuscular Volume 94.7 fL (80.0-98.0); Monocytes Absolute Auto 0.5 X10*3/uL (0.1-1.2); Monocytes Percent Auto 6.3 % (2-11); Neutrophils Absolute Auto 5.7 x10*3/uL (2.0-8.3); Neutrophils Percent Auto 69.7 % (45-73); Platelet Count 213 X10*3/uL (160-400); Red Blood Count 4.54 X10*6/uL (4.60-5.80); Red Cell Distribution Width 12.7 % (11.0-16.0); White Blood Count 8.1 X10*3/uL (4.8-10.8)
[2022-03-08 16:45] LABS: Anion Gap 16 (12-20); Blood Urea Nitrogen 13 mg/dL (9-16); Calcium 9.2 mg/dL (8.4-10.2); Carbon Dioxide 26 mmol/L (22-29); Chloride 101 mmol/L (96-108); Estimated Glomerular Filt Rate > 60; Glucose Random 180 mg/dL (60-115); Potassium 4.4 mmol/L (3.3-5.1); Sodium 139 mmol/L (135-145)
[2022-03-08] MEDS: iohexoL 350 MG/ML 100 ML INFUS..BTL IV (17:18)
[2022-03-08 17:20] LABS: Alanine Aminotransferase 23 U/L (0-40); Albumin Level 4.4 g/dL (3.5-5.0); Alkaline Phosphatase 66 U/L (39-117); Aspartate Amino Transferase 24 U/L (5-37); Bilirubin Direct 0.3 mg/dL (0.0-0.5); Bilirubin Total 0.7 mg/dL (0.0-1.0); Total Protein 6.9 g/dL (6.5-8.0)
== END 2022-03-08 18:27 | disposition home or self-care (01) ==
PROVIDERS: Nurse Practitioner Family; Emergency Provider Emergency Medicine; PCP Internal Medicine
DX: S52.501A Unspecified fracture of the lower end of right radius, initial encounter for closed fracture (principal); S20.211A Contusion of right front wall of thorax, initial encounter; R07.89 Other chest pain; M79.641 Pain in right hand; R07.81 Pleurodynia; W01.0XXA Fall on same level from slipping, tripping and stumbling without subsequent striking against object, initial encounter; Y93.K1 Activity, walking an animal; Y92.410 Unspecified street and highway as the place of occurrence of the external cause; Y99.9 Unspecified external cause status; Z79.899 Other long term (current) drug therapy
CPT/HCPCS: 29125; 36415; 71101; 71260; 73110; 73130; 74177; 80048; 80076; 85025; 99283; 99284; Q9967

== ENCOUNTER → 2022-03-13 14:28 | Outpatient (BNVA) | payer OTHER, SELFPAY | PROVIDERS: PCP Internal Medicine; Visit Provider Physician Assistant | DX: S52.511A Displaced fracture of right radial styloid process, initial encounter for closed fracture (principal); W01.0XXA Fall on same level from slipping, tripping and stumbling without subsequent striking against object, initial encounter; Y93.K1 Activity, walking an animal; Y92.9 Unspecified place or not applicable; Y99.8 Other external cause status | CPT/HCPCS: 99202 ==

== ENCOUNTER 2022-04-13 | Outpatient (REF) | payer OTHER, SELFPAY ==
--- NOTE | ~2022-04-13 | XR_ITS ---
EXAMINATION: XR WRIST, RIGHT CLINICAL INFORMATION: Fracture COMPARISON: Previous x-ray February 2022 TECHNIQUE: PA, lateral, and oblique views of the right wrist. FINDINGS: Nondisplaced radial styloid fracture. Alignment is unchanged. Obscured fracture lines are suggestive of evidence of healing. Old fifth metacarpal shaft fracture unchanged. Question widened scapholunate distance. Soft tissues are normal. XR/XR wrist RT min 3V IMPRESSION: Healing nondisplaced radial styloid fracture. Question widened scapholunate distance.
== END 2022-04-13 00:01 ==
LOC: HO.HOSX
PROVIDERS: Visit Provider Physician Assistant
DX: S52.511A Displaced fracture of right radial styloid process, initial encounter for closed fracture (principal)
CPT/HCPCS: 73110; 99212

== ENCOUNTER 2024-10-05 21:03 | Emergency (ER) | payer OTHER, SELFPAY ==
--- NOTE | ~2024-10-05 | XR_ITS ---
CLINICAL HISTORY: Pain, heard loud pop 4 view left knee Comparison: None Findings: Small left knee joint effusion. No fracture or malalignment. Mild degenerative changes are present. No radiopaque foreign body. IMPRESSION: Small left knee joint effusion. No fracture identified This document has been electronically signed by: Amando Sesay MD on 10/05/2024 22:31:08
[2024-10-05 21:13] VITALS: BP 127/68; PULSE 74; RESP 18; TEMP 36.7; O2SAT 98; BMI 25.7
--- NOTE | 2024-10-06 00:18 | ED_ITS ---
HPI - Extremity Injury (Lower) General Chief Complaint: Extremity Injury, Lower Stated Complaint: left knee inj Time Seen by Provider: 10/06/24 00:18 Source: patient Mode of arrival: ambulatory History of Present Illness ED Provider: Melissa Barnes PA-C HPI Narrative: Patient reports to emergency department today for evaluation of left-sided knee discomfort. Patient states that he likes to do martial arts in his yd as a past time. While he was doing this in his yd earlier today he missed a divot in his yd causing him to trip and fall with his left knee twisting. He states that he felt a pop. He has had meniscal injury to this knee in his other knee in the past. He had arthroscopic repair in the past. He is established with an sales and training specialist. He is due to see them next week for an injection into his right knee. Patient has concerns that he injured his lateral meniscus. It does hurt to ambulate and bear weight. He has his own crutches. He took both Tylenol and ibuprofen and reports no difference he would like to try stronger medicine as he has benefitted from before in the past. He denies any paresthesias or weakness of his left lower extremity he did not hit his head or lose any consciousness denying any other pain except for in his left knee. Reports feeling like it is swollen but no pain on proportion. He is able to move his ankle freely and has no pain in his hip or back. He has iced it in his helped a little bit. MD complaint: knee injury and fall Associated symptoms: swelling Related Data Previous Rx's ?Medication ?Instructions ?Recorded azithromycin 250 mg tablet See Rx Instructions PO .COMPLEX #6 06/21/20 (Zithromax Z-Leroy) tabs benzonatate 100 mg capsule 100 mg PO TID PRN cough #30 caps 06/21/20 (Tessalon Perles) cephalexin 500 mg capsule (Keflex) 500 mg PO QID 7 days #28 caps 06/21/20 dexamethasone 6 mg tablet 6 mg PO DAILY 10 days #10 tabs 06/21/20 oxycodone 5 mg tablet 5 mg PO Q8H PRN pain #10 tabs 03/08/22 tramadol 50 mg tablet 50 mg PO Q8H PRN pain 7 days #21 03/13/22 tabs cyclobenzaprine 10 mg tablet 10 mg PO BEDTIME PRN muscle spasm 05/16/25 #10 tabs tramadol 50 mg tablet 50 mg PO Q8H PRN severe pain 10/06/24 (scale score 7-10) #20 tabs Allergies Allergy/AdvReac Type Severity Reaction Status Date / Time Penicillins [PENICILLINS] Allergy Unknown UNKNOWN Verified 10/05/24 21:18 sulfamethoxazole Allergy Unknown UNKNOWN Verified 10/05/24 21:18 [From BACTRIM] trimethoprim [From BACTRIM] Allergy Unknown UNKNOWN Verified 10/05/24 21:18 vancomycin [VANCOMYCIN] Allergy Unknown UNKNOWN Verified 10/05/24 21:18 ALMOST EVERYTHING Allergy Unknown ASK PT Uncoded 02/08/20 16:57 Review of Systems Review of Systems: Yes all other systems are reviewed and are negative PMFSH Past Medical History Attestation statement: The following information was validated with the patient. Source: nursing notes reviewed Medical History High blood pressure Social History Social History Alcohol intake: never Patient Tobacco Use Status: Never used Tobacco Advance Directives: No Do you have a plan to hurt others: No Plan Current occupational status: unemployed Current occupation: right hand dominant Physical Exam Vital Signs: Vital Signs: Last Vital Signs Temp 98.0 F 10/06/24 00:56 Pulse 74 10/06/24 00:56 Resp 18 10/06/24 00:56 BP 127/68 10/06/24 00:56 Pulse Ox 98 10/06/24 00:56 O2 Del Method Room Air 10/06/24 00:56 BMI result Body Mass Index 25.7 General: Appears in no acute distress, appears well nourished body habitus is [x], appears [stated age]. No septic or ill-appearing. Vitals reviewed normal, PMH/Social and Surgical hx reviewed including allergies and current medications. - reviewed for prior visits here and [not read/read as it pertains to similar CC]. Head: Normocephalic, no obvious trauma or skin lesions noted. Eyes: EOMI ENMT: moist oral mucosa Neck: trachea midline Cardiovascular: peripheral perfusion normal, Regular heart rate Respiratory: no respiratory distress Abdomen: nondistended Extremities: warm and moving without difficulty unless otherwise detailed in physical exam if applicable. LLE: Patient has a positive left-sided Tiffanie test on the lateral portion. Negative anterior/posterior drawer, no laxity noted. Mild soft tissue swelling palpable effusion without any surrounding erythema no pain on proportion compartments are soft DTRs are intact full range of motion distal joint cap refill less 3 seconds. Pulses 2+ no ecchymosis noted full range of motion of the knee. Strength is 4+ throughout Psych: Cooperative Neuro: Alert and oriented. Medical Decision Making Medical Decision Making MDM Narrative: Patient presents to ED today for evaluation of left-sided knee pain. DANNY is trip and fall. This is not work related. H and P as above. Patient is afebrile with stable vitals and well-appearing. ?History and physical as stated above. ?Patient is neurovascular intact in the affected extremity. ?X- rays were obtained to further evaluate. At this time no evidence of NVC to warrant further work up/ intervention or consult. They show no acute fractures. ?Patient's symptoms are consistent with a internal knee derangement specifically likely lateral meniscus injury. ?Patient?s left knee ?was placed in a splint. He came with his own crutches already. He has taken tramadol before for pain in the past requests this again. ?Discussed icing it, elevating and alternating ibuprofen and Tylenol for discomfort. ?Discussed that there is no significant improvement in the next 1 to 2 weeks to follow-up with an ?orthopedic clinic, information given. Patient has an appointment already scheduled next week for his right knee and will try to see if his orthopedic we will see him for this knee as well. Discussed symptomatic treatment with the patient. ?Discussed return precautions. ?Patient verbalized understanding of the above plan and is in agreement with the above plan. ?The patient was discharged home in stable condition with return precautions. Given the severity of the patient's pain, a short course of opiates was prescribed. MassPAT was checked and I had no concern regarding frequent prescriptions / multiple prescriptions.The patient was provided counseling about opiates regarding addictive properties, disposal and side effects.? Differential Diagnosis Differential Diagnoses: The differential diagnosis associated with the presentation includes Left knee fracture, dislocation, neurovascular compromise Admission/Observation Consideration of admission/observation: Escalation of care including admission/observation considered Patient would have been admitted to the hospital had his work up had any findings where hospital admission was appropriate and his clinical presentation warranted hospital admission. Independent Interpretation I performed an independent interpretation of an: Plain X-Ray Interpretation: No evidence of fracture or dislocation small joint effusion noted Radiology Impression Discussion of test interpretation with radiology: I have reviewed the radiologist's reading. Radiologist Impression: Same as preliminary read Tests considered The following testing was considered but not selected: Would consider VTE for concerns of clot but well score for VT is 0. We have also considered compartment pressure checking had there been any pain on proportion or lack of DTRs Prescription Management I considered prescription management with: Pain Medication Discharge Plan Discharge Clinical Impression: Acute internal derangement of left knee, Effusion of knee joint, left Patient Disposition: Home, Self-Care Instructions: Meniscus Tear (ED) Additional Instructions: You were evaluated for an injury to your knee.? Your physical exam is highly suggestive of a lateral meniscus tear. Your x-rays today show no evidence of a fracture however some joint effusion which would be consistent with internal knee derangement. There is no evidence of neurovascular compromise Use the knee brace for the next 7-10 days.? You have your arm orthopedic they your already established with if for any reason he is unable to see you please follow up with our Orthopedic Clinic Use Motrin/Advil (ibuprofen) 400-600 mg every 6 to 8 hours? as needed for pain. In addition, You can use Tylenol (acetaminophen) 650 mg every 6 hrs as needed for pain.? Do not take more than 3000 mg in one day! Use intermittent ice 4 or 5 times a day, 20 minutes at a time,? for a few days. Elevate the extremity as much as possible Return immediately or go to the ER for increased or uncontrolled pain, numbness, tingling, or weakness of extremities. Please see the orthopedist in followup if not improving over the next week. Given the severity of the patient's pain, a short course of opiates was prescribed. MassPAT was checked and I had no concern regarding frequent prescriptions / multiple prescriptions.The patient was provided counseling about opiates regarding addictive properties, disposal and side effects.? Prescriptions: New tramadol 50 mg tablet 50 mg PO Q8H PRN (Reason: severe pain (scale score 7-10)) Qty: 20 0RF Rx Instructions: Patient may partially fell upon request cyclobenzaprine 10 mg tablet 10 mg PO BEDTIME PRN (Reason: muscle spasm) Qty: 10 0RF No Action azithromycin [Zithromax Z-Leroy] 250 mg tablet See Rx Instructions .ROUTE .COMPLEX Qty: 6 0RF Rx Instructions: take 500 mg today (day 1), then 250 mg for 4 days (days 2-5) cephalexin [Keflex] 500 mg capsule 500 mg PO QID 7 Days Qty: 28 0RF dexamethasone 6 mg tablet 6 mg PO DAILY 10 Days Qty: 10 0RF benzonatate [Tessalon Perles] 100 mg capsule 100 mg PO TID PRN (Reason: cough) Qty: 30 0RF oxycodone 5 mg tablet 5 mg PO Q8H PRN (Reason: pain) Qty: 10 0RF Rx Instructions: Partial Fill upon patient request. tramadol 50 mg tablet 50 mg PO Q8H PRN (Reason: pain) 7 Days Qty: 21 0RF Referrals: [facility] [Provider Group] - 1 week Interventions: ED Discharge Assessment Last Done: 10/06/24 00:56 Discharge Date/Time: 10/06/24 00:57 Print Language: Mohawk
[2024-10-06 00:56] VITALS: BP 127/68; PULSE 74; RESP 18; TEMP 36.7; O2SAT 98
== END 2024-10-06 00:57 | disposition home or self-care (01) ==
PROVIDERS: Emergency Provider Internal Medicine; PCP Internal Medicine
DX: M23.8X2 Other internal derangements of left knee (principal); M25.562 Pain in left knee; M25.462 Effusion, left knee
CPT/HCPCS: 73562; 99282; 99283

== ENCOUNTER → 2024-10-05 22:00 | Outpatient (BNV) | payer OTHER, SELFPAY | PROVIDERS: Visit Provider Radiology Vascular & Interventional Radiology | DX: M25.462 Effusion, left knee (principal) | CPT/HCPCS: 73562 ==

== ENCOUNTER 2024-10-27 09:13 | Outpatient (REF) | payer OTHER, SELFPAY ==
--- NOTE | ~2024-10-27 | XR_ITS ---
EXAMINATION: XR KNEE 1-2 VIEWS LEFT HISTORY: M25.562 - Pain in left knee COMPARISON: Comparison is made with the prior examination dated 10/05/2024. FINDINGS: Standing AP views of both knees and an additional sunrise patellar view of the left knee are submitted. There is an area of sclerosis in the medial femoral condyle of the right knee which could represent osteonecrosis. There is no fracture or dislocation. There is mild narrowing of medial compartment of both knees. The soft tissues are unremarkable. XR/XR knee LT 2V IMPRESSION: 1. Mild narrowing of the medial compartment of both knees. 2. Sclerosis of the medial femoral condyle the right knee which could represent osteonecrosis. Electronically signed by: Corby Delvalle MD 10/27/2024 01:18 PM EDT
--- OUTSIDE RECORDS SUMMARY | 2024-10-27 09:42 | XMS_ITS | Clinical Summary ---
Author Organization [facility] Address [address] [place] [address] Care Team Providers Care Burial Agent Name Role Phone Unavailable Primary Care Provider Unavailabl e Source Comments PLEASE NOTE, if this patient is a minor, it may be UNLAWFUL to discuss sensitive information that is contained in these records (such as FAMILY PLANNING, MENTAL HEALTH or SUBSTANCE ABUSE) with the minor patient's parent or other person without the patient's specific authorization.[facility] Allergies Active Allergy Reactions Criticality Noted Date Comments Penicillin G Rash,Swelling Medium 07/22/2023 Medications fluoride, sodium, (DENTAGEL) 1.1 % gel Place in mouth once daily [place] for 2 min at Night spit out DO NOT RINSE 1 Tube 3 07/10/2020 Active chlorhexidine gluconate (PERIDEX) 0.12 % solutionIndicati ons:Tooth sensitivity Swish and spit 15 mL 2 (two) times daily . Do not swish mouth out, eat, or drink for 30 mins after use. 1 Bottle 3 08/16/2020 Active ibuprofen 800 mg tabletIndication s:Oral pain Take 1 Tablet by mouth 3 (three) times daily as needed for pain Do NOT take more than 4 (four) tablets in 24 (twenty four) hours. 20 Tablet 03/05/2021 Active clindamycin HCL (CLEOCIN) 300 mg capsule Take 1 Capsule by mouth 3 (three) times daily 21 Capsule 07/30/2021 Active Active Problems No known active problems Social History Tobacco Use Types Packs/Day Years Used Date Smoking Tobacco: Never Smokeless Tobacco: Never Tobacco Cessation:Counseling Given: Not Answered Social Connections Answer Date Recorded Connectedness 0 02/10/2024 Financial Resource Strain Answer Date R ecorded Financial Resource Strain 0 2020 Stress Answer Date Recorded Stress 0 08/16/2020 Physical Activity Answer Date Recorded Physical Activity 0 08/16/2020 Food Insecurity Answer Date Recorded Food 0 02/17/2024 Transportation Needs Answer Date Record ed Transportation 0 08/16/2020 Housing Stability Answer Date Recorded Housing 0 08/16/2020 Safety and Environment Answer Date Tyler rded Safety 0 08/16/2020 Utilities Answer Date Recorded Utilities 0 08/16/2020 Employment Answer Date Recorded Stress 0 02/10/2024 Sex and Gender Information Value Date Recorded Sex Assigned at Not on file Legal Sex Male 6:17 AM PDT Gender Identity Not on file Sexual Orientation Not on file Last Filed Vital Signs Vital Sign Reading Time Taken Comments Blood Pressure 132/83 06/21/2024 3:21 PM EST Pulse 108 06/21/2024 3:21 PM EST Temperature - - Respiratory Rate - - Oxygen Saturation - - Inhaled Oxygen Concentration - - Weight - - Height - - Body Mass Index - - Plan of Treatment Upcoming Encounters Date Type Department Care Team (Late st Contact Info) Description 12/12/2024 10:20 AM EDT Office Visit [facility] [address] [place] [id number] Wei Das, D [address] [place] [address] Health Maintenance Due Date Last Done Comments Anxiety Screening 1965 Diabetes Screening 1963 Hepatitis C Screening 1963 Lipid Screening 1963 HIV Screening 1978 Imm-DTaP/Tdap/Td (1 - Tdap) 1982 CT Colonography 2008 Colonoscopy 2008 Colorectal Cancer Screening 2008 FIT/gFOBT 2008 Fecal DNA 2008 Flexible Sigmoidoscopy 2008 Imm-Zoster, Recombinant (1 of 2) 2013 [id number] ( season) 2024 Imm-Influenza (#1) 2024 Alcohol and Drug Screen 05/24/2024 Depression Annual Screen 05/24/2024 Dental BW 06/16/2025 06/14/2024, 05/24, 12/04/2022, Additional history exists Dental Examination 06/16/2025 06/14/2024, 0 12/08/2023, 06/09/2023, Additional history exists Dental Perio Charting 06/16/2025 06/14/2024 , 12/08/2023, 06/09/2023 Dental Prophy 06/16/2025 06/14/2024, 11/21, 06/09/2023, Additional history exists Hypertension Screening (#1) 06/21/2025 Tobacco Screening 06/21/2025 06/21/2024 Dental FMX/Pano 06/11/2028 06/09/2023 Procedures Procedure Name Priority Date/Time Associated Diagnosis Comments COMP PERIODONTAL EVALUATION - NEW/EST PATIENT Routine 06/14/2024 11:00 AM EST Encounter for dental examination BITEWINGS - FOUR RADIOGRAPHIC IMAGES Routine 06/14/2024 11:00 AM EST Encounter for dental examination PROPHYLAXIS - ADULT Routine 06/14/2024 1 1:00 AM EST Encounter for dental examination PERIODIC ORAL EVALUATION ESTABLISHED PATIENT Routine 06/14/2024 11:00 AM EST Encounter for dental examination INTRAORAL - COMP SERIES OF RADIOGRAPHIC IMAGES Routine 06/09/2023 10:20 AM EST Encounter for dental examination from Last 3 Months or Most Recently Relevant to Health Maintenance Insurance [place]
== END 2024-10-27 09:14 | disposition home or self-care (01) ==
LOC: HO.HOSX 09:13
PROVIDERS: Visit Provider Physician Assistant
DX: M25.562 Pain in left knee (principal); S83.412A Sprain of medial collateral ligament of left knee, initial encounter; X50.1XXA Overexertion from prolonged static or awkward postures, initial encounter; Y93.75 Activity, martial arts; Y92.007 Garden or yard of unspecified non-institutional (private) residence as the place of occurrence of the external cause; Y99.9 Unspecified external cause status
CPT/HCPCS: 73560; 99212

== ENCOUNTER 2024-10-27 12:38 | Outpatient (AMB) | payer OTHER, SELFPAY ==
[2024-10-27 13:03] VITALS: BMI 25.7
--- NOTE | 2024-10-27 13:03 | A.OFFVIS_ITS ---
Vital Signs 10/27/24 13:03 Height 6 ft 2 in Weight 200 lb BMI 25.7 Intake Visit Reasons: OV-Lt knee Acute internal derangement injury Intake Note: Javi is a 59 year old male who presents for an ER follow up of a left knee injury, DOI 10/06/24. Patient was seen at [facility] ER status post fall causing a twisting injury to his knee while he was in his yard performing martial arts. He felt a pop in his knee. Today patient reports that he was performing rotational movement in a clock ramirez direction, when his back foot was caught in a hole causing him a twisting injury to his knee. He has been doing at home exercises. He has concerns of medial and lateral popping, as well as ongoing swelling. Hx of bilateral knee arthroscopy. Allergies Penicillins [PENICILLINS] Allergy (Unknown, Verified 10/27/24 13:16) UNKNOWN sulfamethoxazole [From BACTRIM] Allergy (Unknown, Verified 10/27/24 13:16) UNKNOWN trimethoprim [From BACTRIM] Allergy (Unknown, Verified 10/27/24 13:16) UNKNOWN vancomycin [VANCOMYCIN] Allergy (Unknown, Verified 10/27/24 13:16) UNKNOWN ALMOST EVERYTHING Allergy (Unknown, Uncoded 10/27/24 13:16) ASK PT Medication List - Last Reconciled 10/27/24 by Sejal Peterson PA-C No Known Home Meds HPI HPI OV-Lt knee Acute internal derangement injury: Details: 59-year-old gentleman presents to the office today for an injury he sustained to his left knee on 10/06/2024 while practicing martial arts. He states he planted his feet and went to turn a certain way when he stepped in a hole in the ground and felt all the weight shift to 1 side and he had immediate pain and a pop sound in his knee. He was unable to weightbear and had significant swelling. He was seen in the emergency department where x-rays were obtained and he was referred to our office for ortho eval. Since the date of injury he has been working on range of motion and strengthening exercises and his pain has somewhat improved however he develops discomfort with certain activities such as twisting or pivoting and changing direction. [facility] Medical History (Updated 10/27/24 @ 13:25 by Sejal Peterson PA-C) High blood pressure Surgical History (Updated 10/27/24 @ 13:18 by Yaima Lieberman [facility]) Hx of shoulder surgery History of surgery on arm Hx of knee surgery Social History Alcohol intake: never Patient Tobacco Use Status: Never used Tobacco Current occupational status: unemployed Current occupation: right hand dominant Review of Systems Const All systems reviewed & are unremarkable except as noted in HPI and below Physical Exam Vital Signs: BMI result Body Mass Index 25.7 Const General: cooperative and no acute distress Orientation/consciousness: patient oriented x3 Resp Effort & Inspection: normal respiratory effort and able to speak in complete sentences Cardio Peripheral pulses: Peripheral pulses 2+ throughout Neuro General: patient oriented x3 Extrem Other: Left knee normal to inspection no joint effusion present. He has mild tenderness to palpation along the MCL. No ligamentous laxity with varus or valgus stress. Negative Ada's. Calf supple and nontender neurovascularly intact. Results Reviewed Results Reviewed: X-rays of the left knee obtained in the office today and reviewed by me show mild medial compartment osteoarthritis. No fractures or dislocations. Assessment & Plan Assessment & Plan (1) MCL sprain of left knee: Code(s): S83.412A - Sprain of medial collateral ligament of left knee, initial encounter Category: Medical Plan: The patient was given a Genumed knee brace today to help with stability. An MRI of the left knee has been ordered to further evaluate the surrounding structures. I recommend that he maintain his motion and strength however he should avoid impact activities. I will contact him once the scan is complete and we will talk about the next step in his treatment. Orders: Orders PT Evaluation and Treatment Today S83.412A - Sprain of medial collateral ligament of left knee, initial encounter XR knee LT 2V Today M25.562 - Pain in left knee MR knee LT wo con Today M17.12 - Unilateral primary osteoarthritis, left knee Medications: New celecoxib (Celebrex) 200 mg PO BID 60 caps 3RF 30 days Coding Level of Care Code Est Pt Level 3 (60048) Complex EM visit Add On G2211 Diagnoses MCL sprain of left knee S83.412A
== END 2024-10-27 13:54 | disposition home or self-care (01) ==
LOC: HO.HOS 12:39
PROVIDERS: PCP Internal Medicine; Visit Provider Physician Assistant
DX: S83.412A Sprain of medial collateral ligament of left knee, initial encounter (principal)
CPT/HCPCS: 99213; G2211

== ENCOUNTER → 2024-10-27 12:59 | Outpatient (BNV) | payer OTHER, SELFPAY | PROVIDERS: Visit Provider Radiology Diagnostic Radiology | DX: M25.862 Other specified joint disorders, left knee (principal) | CPT/HCPCS: 73560 ==

== ENCOUNTER → 2024-11-02 19:37 | Outpatient (BNV) | payer OTHER, SELFPAY | PROVIDERS: PCP Internal Medicine; Visit Provider Radiology Diagnostic Radiology | DX: S83.512A Sprain of anterior cruciate ligament of left knee, initial encounter (principal); M25.462 Effusion, left knee | CPT/HCPCS: 73721 ==

== ENCOUNTER 2024-11-02 19:41 | Outpatient (REF) | payer OTHER, SELFPAY ==
--- NOTE | ~2024-11-02 | MR_ITS ---
EXAMINATION: MRI LEFT KNEE WITHOUT CONTRAST HISTORY: M17.12 - Unilateral primary osteoarthritis, left knee COMPARISON: Correlation is made with plain films of the left knee dated 10/05/2024. TECHNIQUE: Coronal T1 and fat-suppressed proton density, sagittal proton density and fat-suppressed proton density, and axial fat suppressed T2 weighted MR images of the left knee were obtained. FINDINGS: Bone marrow: There is extensive bone marrow edema involving the tibial plateau, greatest medially and posteriorly. Additional areas of bone marrow edema are noted involving the weightbearing portion of the lateral femoral condyle, the central subchondral distal femur, and the anterior aspect of the radial femoral condyle. Joint effusion: There is a large suprapatellar joint effusion. Galindo's cyst: There is no Galindo's cyst. Articular cartilage: There is a small cartilage fissure involving the weightbearing surface of the lateral femoral condyle. Muscles/soft tissues: The visualized muscles demonstrate normal signal intensity. Anterior cruciate ligament: The anterior cruciate ligament is not identified, consistent with a tear. Posterior cruciate ligament: Intact Medial collateral ligament: Intact Lateral collateral ligament: Intact Medial meniscus: The posterior horn of the medial meniscus is diminutive in size which may be postoperative in nature. The anterior horn and body of the medial meniscus are intact. Lateral meniscus: The posterior horn of the lateral meniscus appears truncated and there is an ovoid hypodensity inferior to the posterior cruciate ligament suggestive of a displaced meniscal fragment. Flexor mechanism: The popliteus, gastrocnemius, and hamstring tendons are intact. Quadriceps tendon: Intact Patellar tendon: Intact Patellar retinacula: Intact MR/MR knee LT wo con IMPRESSION: 1. Large suprapatellar joint effusion. 2. Extensive multifocal bone marrow edema in the distal femur and proximal tibia as described, consistent with bone contusions. 3. ACL tear. 4. Findings consistent with a tear of the posterior horn of the lateral meniscus with a displaced meniscal fragment inferior to the PCL. 5. Small cartilage fissure involving the lateral femoral condyle. 6. The posterior horn of the medial meniscus is diminutive in size which may be postsurgical in nature. Craniocaudal correlation is recommended. Electronically signed by: Corby Delvalle MD 11/03/2024 07:41 AM EDT
== END 2024-11-02 19:42 | disposition home or self-care (01) ==
LOC: HO.MRI 19:41
PROVIDERS: PCP Internal Medicine; Visit Provider Physician Assistant
DX: M17.12 Unilateral primary osteoarthritis, left knee (principal)
CPT/HCPCS: 73721

== ENCOUNTER 2024-11-23 14:58 | Outpatient (RCR) | payer OTHER, SELFPAY ==
--- NOTE | 2024-11-23 16:41 | MHC.PT.DC ---
[facility] Office [place] Office [place] Office [address] Autumn Weber [address] [facility] [phone] F: [phone] F: [phone] F: [phone] F: [phone] Physical Therapy Discharge Report Diagnosis: LEFT ACL TEAR/STRAIN OF MCL (KP) Date of Surgery: Date of Evaluation: 11/09/24 Date of Discharge: 11/23/24 Treatments to Date: 2 Cancellations to Date: 0 No Shows to Date: 0 Discharge Status: Patient Elected to Stop Discharge Summary: Javi presents today reporting he has not been painful of his L knee; he is c/o L shoulder blade pain. Pt had difficulty following directions for LE strengthening in terms of form and consistency d/t willfulness often talking over PT and adding his own (often much more dynamic and challenging) movements and ideas; after discussing this observation he was asked if he felt he needed skilled therapy for his knee and he replied no . We did work on gentle posture ed to decrease cervical tension which helped his shoulder discomfort; he was encouraged to return to his MD should he wish a classical assessment of his L shoulder pain. Pt is in agreement with DC at this time. Electronically signed by: Hilton Shelton PT. Please sign and return to therapist. Thank you for your referral.
== END 2024-11-23 16:37 | disposition home or self-care (01) ==
LOC: HO.PT 14:58
PROVIDERS: PCP Internal Medicine; Visit Provider Physician Assistant
DX: S83.412D Sprain of medial collateral ligament of left knee, subsequent encounter (principal)
CPT/HCPCS: 97110; 97162

== ENCOUNTER 2024-11-26 19:26 | Emergency (ER) | payer OTHER, SELFPAY ==
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
[2024-11-26 19:34] VITALS: BP 113/69; PULSE 98; RESP 16; TEMP 36.8; O2SAT 98; BMI 26.4
--- OUTSIDE RECORDS SUMMARY | 2024-11-26 21:03 | XMS_ITS | Data Portability ---
Author Organization [facility] Landon LE[address] Address [address] [place] [address] Care Team Providers Care It Desktop Support Technician Name Role Phone LISSA REEVES Referring Provider Assessment Encounter Date Assessment Date Assessment LastModified by Organization Details LastModified Time 03/24/2016 03/24/2016 Custom Device: Is a custom device needed for this patient? NO Reasons for Custom Device: Explain Reasoning: The patient will be seen on an as needed basis. Orthosis: is in stock & delivered today. Device delivered: If Prefab, Custom Fit, explain modifications - what was done and why: If Custom device, state reasons and provide narrative: Explain Reasoning: Orthotic Goals: Choose all that apply Reduce Pain Limit Motion Positioning Promote Healing Other (please specify): mary grace Not available 03/24/2016 09:51:48 08/18/2016 08/18/2016 Custom Device: Is a custom device needed for this patient? NO Reasons for Custom Device: Explain Reasoning: The patient will be seen on an as needed basis. Orthosis: is in stock and delivered today. Device delivered: Prefab, OTS If Prefab, Custom Fit, explain modifications - what was done and why: If Custom device, state reasons and provide narrative: Explain Reasoning: Orthotic Goals: Choose all that apply Provide Support Limit Motion Positioning Improve Stability Improve Gait Promote Healing Other (please specify): jennifer Not available 08/19/2016 09:43:08 12/29/2016 12/29/2016 Custom Device: Is a custom device needed for this patient? NO Reasons for Custom Device: Explain Reasoning: The patient will be seen on an as needed basis. Orthosis: is in stock and delivered today. Device delivered: Prefab, OTS If Prefab, Custom Fit, explain modifications - what was done and why: If Custom device, state reasons and provide narrative: Explain Reasoning: Orthotic Goals: Choose all that apply Provide Support Reduce Pain Limit Motion Positioning Improve Stability Improve Gait Promote Healing Other (please specify): mary grace Not available 12/29/2016 15:41:20 Plan of Treatment Reminders Order Date Submit Date Provider Last Modified By Organization Details Last Modified Time Details Appointments None record ed. Lab None record ed. Referral None record ed. Procedures None record ed. Surgeries None record ed. Imaging None record ed. Medication Orders None record ed. Patient TargetsNo targets recorded. Patient Instructions Encounter Date Encounter Id Patient Instructions Last Modified By Organization Details Last Modified Time 03/24/2016 [id number] Device provided has good fit & function. Patient agrees with my assessment. Patient does understand wear & care of device. Patient does understand how to don & doff the device. Patient received written instructions. Patient was provided with my business card and agrees to call if any problems. mary grace Not available 03/24/2016 09:51:48 08/18/2016 [id number] Device provided has good fit and function. Patient agrees with my assessment. Patient does understand wear and care of device. Patient does understand how to don and doff the device. Patient received written instructions. Patient was provided with my business card and agrees to call if any problems. [email or web address] Not available 08/19/2016 09:41:03 12/29/2016 [id number] Device provided has good fit and function. Patient agrees with my assessment. Patient does understand wear and care of device. Patient does understand how to don and doff the device. Patient received written instructions. Patient was provided with my business card and agrees to call if any problems. mary grace Not available 12/29/2016 15:40:15 Reason for Referral None Reported. Problems Name Problem SNOMED Code Status Onset Date Resolution Date Notes Provider Name and Address Organization Details Recorded Time Tendinitis of foot 696444721 Active Nael cabrera [place] - [facility] 6 09:51:48 Problem Notes None recorded. Procedures Surgical History Date Name Laterality Status Provider Name and Address Organization Details Recorded Time 7 BI Procedures completed Nael Link [facility] - [facility] 12/29/2016 15:41:00 7 BI Procedures completed Garfield Banda MA - [facility] 08/19/2016 09:42:48 6 BI Procedures completed Nael Link [place] - [facility] 03/24/2016 09:51:48 Imaging Results None recorded. Procedure Notes None recorded. Medical Equipment None Reported. Vitals None Recorded Social History None recorded. Functional Status None recorded. Mental Status None recorded. Family History Nothing Reported. Medical History No medical history recorded. Past Encounters Encounter ID Performer Location Encounter Start Date Encounter Closed Date Diagnosis/Indication Diagnosis SNOMED-CT Code Diagnosis ICD10 Code Diagnosis Note [id number] REBECCA Matta [facility] [address] [place] [address] 03/24/2016 09:39:15 03/31/2016 15:43:53 Tendinitis of foot 663776006 M76.812 [id number] AJ Rand, handbag designer [facility] [address] [place] [address] 08/18/2016 11:37:37 08/21/2016 12:16:04 Tibialis posterior tendinitis 368998684 M76.829 [id number] REBECCA Matta [facility] [address] [place] [address] 12/29/2016 13:27:21 01/05/2017 16:10:22 Osteoarthritis of knee 611243207 M17.11 Health Concerns Section Related Observation LastModified by Organization Detai ls LastModified Time None Recorded Concern Status LastModified by Organization Details LastModified Time None Recorded Advance Directives Directive None Recorded Payers Insurance Date Sequence Insurance Name Policy Number Policy Noonan Covered Member ID Noonan Member ID Guarantor Name 08/18/2016 1 [facility] (MEDICAID REPLACEMENT - HMO) Javi Rivera [id number] Javi Rivera 12/29/2016 1 [facility] [employer] [facility] (MEDICAID HMO) Javi Rivera [id number] Javi Rivera Notes Date Note Type Note Provider Name and Address Organization Details Recorded Time 03/24/2016 text/html BI HPIReported bypatient.patient is:Out Patient patient accompaniedsister Material AllergiesNoNotes:DX plantarfacitis rx fit with 90 degree corflex night splint [facility] 03/24/2016 09:51:56 08/18/2016 text/html BI HPIReported bypatient.patient is:Out Patient Pain?location(right ankle);level 4/10Notes:Patient fit with size xl lace up ankle brace to right ankle. Garfield cabrera [place] - [facility] 08/19/2016 09:43:37 12/29/2016 text/html BI HPIReported bypatient.patient is:Out Patient patient accompaniedpatient not accompanied Material AllergiesNo Previous InjuryR medial oa Pain?level 5/10 Numbness?none reported Edema?no edema reported Weakness?weakness reported Instability?no instability reported Skin Problemsnone reported Assistive Devices?no assistive devices needed Nael cabrera [place] - [facility] 12/29/2016 15:41:52
[2024-11-26 22:10] VITALS: BP 123/74; PULSE 52; RESP 16; TEMP 36.8; O2SAT 97
--- NOTE | 2024-11-26 23:13 | PC.NURSE ---
Went in to provide patient with Tetnus vaccine information sheet and patient not on stretcher. Searched all bathrooms and patient not found in any of them. Another staff noted they saw him walking out towards the exit but the patient did not say anything about leaving. Notified Nikki Lynne RN and Daniela Hernandez.
== END 2024-11-26 23:13 | disposition left against medical advice (07) ==
PROVIDERS: Emergency Provider Emergency Medicine
DX: S51.812A Laceration without foreign body of left forearm, initial encounter (principal); S09.90XA Unspecified injury of head, initial encounter; R07.81 Pleurodynia; M25.562 Pain in left knee; M25.512 Pain in left shoulder; R51.9 Headache, unspecified; V19.3XXA Pedal cyclist (driver) (passenger) injured in unspecified nontraffic accident, initial encounter; Y93.9 Activity, unspecified; Y92.410 Unspecified street and highway as the place of occurrence of the external cause; Y99.8 Other external cause status
CPT/HCPCS: 12002; 70450; 71101; 72125; 73030; 73564; 99284

== ENCOUNTER → 2024-11-26 19:34 | Outpatient (BNV) | payer OTHER, SELFPAY | PROVIDERS: Visit Provider Student in an Organized Health Care Education/Training Program | DX: M47.812 Spondylosis without myelopathy or radiculopathy, cervical region (principal); S09.90XA Unspecified injury of head, initial encounter; R07.81 Pleurodynia; S80.212A Abrasion, left knee, initial encounter; M25.512 Pain in left shoulder; W19.XXXA Unspecified fall, initial encounter | CPT/HCPCS: 70450; 71101; 72125; 73030; 73564 ==

== ENCOUNTER 2024-12-03 11:29 | Emergency (ER) | payer OTHER, SELFPAY ==
--- OUTSIDE RECORDS SUMMARY | 2024-12-03 12:19 | XMS_ITS | Clinical Summary ---
Author Organization [facility] Address [address] [place] [address] Care Team Providers Care Skiving Machine Operator Name Role Phone Unavailable Primary Care Provider [...] % gel Place in mouth once daily [place] for 2 min at Night spit out [...] Description 12/12/2024 10:20 AM EDT Office Visit [facility] [address] [place] [id number] Wei Das, D [address] [place] [address] Health Maintenance Due Date Last Done Comments Anxiety Screening 1965 Diabetes Screening 1963 Hepatitis C Screening 1963 Lipid Screening 1963 HIV Screening 1978 Imm-DTaP/Tdap/Td (1 - Tdap) 1982 CT Colonography 2008 Colonoscopy 2008 Colorectal Cancer Screening 2008 FIT/gFOBT 2008 Fecal DNA 2008 Flexible Sigmoidoscopy 2008 Imm-Pneumococcal 50+ (1 of 1 - PCV) 2013 Imm-Zoster, Recombinant (1 of 2) 2013 Tqa-LVTEW-26 (1 - season) 2024 Alcohol and Drug Screen 05/24/2024 Depression Annual Screen 05/24/2024 Imm-Influenza (#1) 2025 Dental BW 06/16/2025 06/14/2024, 05/24, 12/04/2022, Additional [...] Most Recently Relevant to Health Maintenance Insurance [place] MEDICAID DENTAL
--- OUTSIDE RECORDS SUMMARY | 2024-12-03 12:19 | XMS_ITS | Data Portability ---
Author Organization [facility] L[address] LE[address] Address [address] [place] [address] Care Team Providers Care Food Service Cashier Name Role Phone LISSA REEVES Referring Provider [...] By Organization Details Last Modified Time 03/24/2016 [id number] Device provided has good fit & function. Patient agrees with my assessment. Patient does understand wear & care of device. Patient does understand how to don & doff the device. Patient received written instructions. Patient was provided with my business card and agrees to call if any problems. mary grace Not available 03/24/2016 09:51:48 08/18/2016 [id number] Device provided has good fit and function. Patient agrees with my assessment. Patient does understand wear and care of device. Patient does understand how to don and doff the device. Patient received written instructions. Patient was provided with my business card and agrees to call if any problems. Not available 08/19/2016 09:41:03 12/29/2016 [id number] Device provided has good fit and function. [...] Organization Details Recorded Time Tendinitis of foot [id number] Active Nael cabrera [place] - [facility] [...] SNOMED-CT Code Diagnosis ICD10 Code Diagnosis Note [id number] REBECCA Matta [facility] [address] [place] [address] 03/24/2016 09:39:15 03/31/2016 15:43:53 Tendinitis of foot 332280618 M76.812 [id number] AJ Rand, respiratory care program director [facility] [address] [place] [address] 08/18/2016 11:37:37 08/21/2016 12:16:04 Tibialis posterior tendinitis 548040526 M76.829 [id number] REBECCA Matta [facility] [address] [place] [address] 12/29/2016 13:27:21 01/05/2017 16:10:22 Osteoarthritis of knee 244406884 M17.11 Health Concerns Section Related Observation LastModified by Organization Detai ls LastModified Time None Recorded Concern Status LastModified by Organization Details LastModified Time None Recorded Advance Directives Directive None Recorded Payers Insurance Date Sequence Insurance Name Policy Number Policy Noonan Covered Member ID Noonan Member ID Guarantor Name 08/18/2016 1 [facility] (MEDICAID REPLACEMENT - HMO) Javi Rivera [id number] Javi Rivera 12/29/2016 1 [facility] [employer] [facility] (MEDICAID HMO) Javi Rivera [id number] Javi Rivera Notes Date Note Type Note Provider Name and Address Organization Details Recorded Time 03/24/2016 text/html BI HPIReported bypatient.patient is:Out Patient patient accompaniedsister Material AllergiesNoNotes:DX plantarfacitis rx fit with 90 degree corflex night splint [facility] 03/24/2016 09:51:56 08/18/2016 text/html BI [...]
== END 2024-12-03 12:21 | disposition left against medical advice (07) ==
PROVIDERS: Emergency Provider Emergency Medicine
DX: Z48.02 Encounter for removal of sutures (principal); Z53.21 Procedure and treatment not carried out due to patient leaving prior to being seen by health care provider

== ENCOUNTER 2024-12-11 10:21 | Outpatient (AMB) | payer OTHER, SELFPAY ==
[2024-12-11 10:23] VITALS: BMI 26.3
--- NOTE | 2024-12-11 10:23 | MHC.OFFVIS ---
Vital Signs 12/11/24 10:23 Height 6 ft Weight 194 lb BMI 26.3 Intake Visit Reasons: OV-Lt knee MRI review Intake Note: Javi is a 59 year old male who presents today for an MRI review of the Right Knee. Patient was last seen with Sejal where he reported a twisting injury to the right knee while doing martial arts in his yard. Allergies Penicillins (PENICILLINS) Allergy (Unknown, Verified 12/11/24 10:30) UNKNOWN sulfamethoxazole (From BACTRIM) Allergy (Unknown, Verified 12/11/24 10:30) UNKNOWN trimethoprim (From BACTRIM) Allergy (Unknown, Verified 12/11/24 10:30) UNKNOWN vancomycin (VANCOMYCIN) Allergy (Unknown, Verified 12/11/24 10:30) UNKNOWN ALMOST EVERYTHING Allergy (Unknown, Uncoded 12/11/24 10:30) ASK PT HPI HPI OV-Lt knee MRI review: Details: Javi is a 59 year old male who presents today for an MRI review of the Right Knee. Patient was last seen with Sejal where he reported a twisting injury to the right knee while doing martial arts in his yard. He has a very specific, martial arts regimen that he does on his own and he does not engage in competitive sports or activities that require excessive amounts of dynamic rotation. He bikes a lot in his very active. He is also complaining of left shoulder pain. [facility] Medical History (Updated 12/11/24 @ 11:36 by Geo Diaz MD) High blood pressure Surgical History (Updated 12/11/24 @ 11:34 by Geo Diaz MD) Hx of shoulder surgery History of surgery on arm Hx of knee surgery Social History Alcohol intake: never Patient Tobacco Use Status: Never used Tobacco Current occupational status: unemployed Current occupation: right hand dominant Physical Exam Vital Signs: BMI result Body Mass Index 26.3 Extrem Other: Negative pivot shift but 2+ Romulo's with no effusion. Stable to varus and valgus stress. Full range motion. Results Reviewed Results Reviewed: I personally reviewed the MR images. 1. Large suprapatellar joint effusion. 2. Extensive multifocal bone marrow edema in the distal femur and proximal tibia as described, consistent with bone contusions. 3. ACL tear. 4. Findings consistent with a tear of the posterior horn of the lateral meniscus with a displaced meniscal fragment inferior to the PCL. 5. Small cartilage fissure involving the lateral femoral condyle. 6. The posterior horn of the medial meniscus is diminutive in size which may be postsurgical in nature. Craniocaudal correlation is recommended. Assessment & Plan Assessment & Plan (1) Tears of meniscus and ACL of left knee: Code(s): S83.207A - Unspecified tear of unspecified meniscus, current injury, left knee, initial encounter; S83.512A - Sprain of anterior cruciate ligament of left knee, initial encounter Category: Medical Plan: This is a 59-year-old with a left knee ACL tear and a chronic lateral Mrs. Tear in his status post partial medial meniscectomy. His function is good in his pain is minimal. I had a long conversation regarding the mechanics of ACL and how keeping his legs strong we will help him. He is very of this and does not want surgery. (2) Hx of shoulder surgery: Comment: scapula- left Code(s): Z98.890 - Other specified postprocedural states Category: Surgical Plan: He fell in his left shoulder has a history of the suprascapular nerve impingement. I recommend physical therapy for his shoulder an order was placed. Plan I will write an order for Physical Therapy to be done at [facility] in [place]. No surgical intervention is required - he will follow up with PA for any further conservative mangement Orders: Orders PT Evaluation and Treatment Today M24.812 - Other specific joint derangements of left shoulder, not elsewhere classified, Z98.890 - Other specified postprocedural states Coding Level of Care Code Est Pt Level 4 (14565) Diagnoses Tears of meniscus and ACL of left knee S83.207A; S83.512A Hx of shoulder surgery Z98.890
--- OUTSIDE RECORDS SUMMARY | 2024-12-11 11:20 | XMS_ITS | Data Portability ---
Author Organization [facility] Landon LEÓN' Address [address] [place] [address] Care Team Providers Care Senior Data Developer Name Role Phone LISSA REEVES Referring Provider [...] By Organization Details Last Modified Time 03/24/2016 [id number] Device provided has good fit & function. Patient agrees with my assessment. Patient does understand wear & care of device. Patient does understand how to don & doff the device. Patient received written instructions. Patient was provided with my business card and agrees to call if any problems. mary grace Not available 03/24/2016 09:51:48 08/18/2016 [id number] Device provided has good fit and function. Patient agrees with my assessment. Patient does understand wear and care of device. Patient does understand how to don and doff the device. Patient received written instructions. Patient was provided with my business card and agrees to call if any problems. [email or web address] Not available 08/19/2016 09:41:03 12/29/2016 [id number] Device provided has good fit and function. 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 [facility] [address] [place] [address] 08/18/2016 11:37:37 08/21/2016 12:16:04 Tibialis posterior tendinitis [id number] M76.829 [id number] REBECCA Matta [facility] [address] [place] [address] 12/29/2016 13:27:21 01/05/2017 16:10:22 Osteoarthritis of knee [id number] M17.11 Health Concerns Section Related Observation LastModified by Organization Detai ls LastModified Time None Recorded Concern Status LastModified by Organization Details LastModified Time None Recorded Advance Directives Directive None Recorded Payers Insurance Date Sequence Insurance Name Policy Number Policy Noonan Covered Member ID Noonan Member ID Guarantor Name 08/18/2016 1 [facility] (MEDICAID REPLACEMENT - HMO) Javi Rivera [id number] Javi Rivera 12/29/2016 1 [facility] (MEDICAID HMO) Javi Rivera [id number] Javi [employer] Notes Date Note Type Note Provider Name and Address Organization Details Recorded Time 03/24/2016 text/html BI HPIReported bypatient.patient is:Out Patient patient accompaniedsister Material AllergiesNoNotes:DX plantarfacitis rx fit with 90 degree corflex night splint [facility] 03/24/2016 09:51:56 08/18/2016 text/html BI [...]
--- OUTSIDE RECORDS SUMMARY | 2024-12-11 11:20 | XMS_ITS | Clinical Summary ---
Author Organization [facility] Address [address] [place] [address] Care Team Providers Care Marketing Sales Manager Name Role Phone Unavailable Primary Care Provider [...] % gel Place in mouth once daily [place] for 2 min at Night spit out [...] Description 12/12/2024 10:20 AM EDT Office Visit [facility] [address] [place] [id number] Wei Das, D [address] [place] [address] Health Maintenance Due Date Last Done Comments Anxiety Screening 1965 Diabetes Screening 1965 Hepatitis C Screening 1963 Lipid Screening 1963 HIV Screening 1978 Imm-DTaP/Tdap/Td (1 - Tdap) 1982 CT Colonography 2008 Colonoscopy 2008 Colorectal Cancer Screening 2008 FIT/gFOBT 2008 Fecal DNA 2008 Flexible Sigmoidoscopy 2008 Imm-Pneumococcal 50+ (1 of 1 - PCV) 2013 Imm-Zoster, Recombinant (1 of 2) 2013 Xqd-BAWKY-20 (1 - season) 2024 Alcohol and Drug [...] Most Recently Relevant to Health Maintenance Insurance [place] DENTAL
== END 2024-12-11 11:06 | disposition home or self-care (01) ==
LOC: HO.HOS 10:22
PROVIDERS: PCP Internal Medicine; Visit Provider Orthopaedic Surgery
DX: S83.207A Unspecified tear of unspecified meniscus, current injury, left knee, initial encounter (principal); S83.512A Sprain of anterior cruciate ligament of left knee, initial encounter; Z98.890 Other specified postprocedural states
CPT/HCPCS: 99214

== ENCOUNTER → 2024-12-11 10:21 | Outpatient (BNVA) | payer OTHER, SELFPAY | PROVIDERS: PCP Internal Medicine; Visit Provider Orthopaedic Surgery | DX: M25.562 Pain in left knee (principal); S83.207A Unspecified tear of unspecified meniscus, current injury, left knee, initial encounter; S83.512A Sprain of anterior cruciate ligament of left knee, initial encounter; M24.812 Other specific joint derangements of left shoulder, not elsewhere classified; Z98.890 Other specified postprocedural states | CPT/HCPCS: 99212 ==

== ENCOUNTER 2025-03-01 14:28 | Outpatient (AMB) | payer OTHER, SELFPAY ==
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
[2025-03-01 14:42] VITALS: BMI 26.3
== END 2025-03-01 15:20 | disposition home or self-care (01) ==
LOC: HO.HOS 14:29
PROVIDERS: PCP Internal Medicine; Visit Provider Physician Assistant
DX: M75.102 Unspecified rotator cuff tear or rupture of left shoulder, not specified as traumatic (principal); M12.812 Other specific arthropathies, not elsewhere classified, left shoulder
CPT/HCPCS: 99213

== ENCOUNTER → 2025-03-01 14:28 | Outpatient (BNVA) | payer OTHER, SELFPAY | PROVIDERS: PCP Internal Medicine; Visit Provider Physician Assistant | DX: M25.512 Pain in left shoulder (principal); M75.102 Unspecified rotator cuff tear or rupture of left shoulder, not specified as traumatic; M12.812 Other specific arthropathies, not elsewhere classified, left shoulder | CPT/HCPCS: 99212 ==